=== PATIENT | female | born 1945 | race Two or more races ===

== ENCOUNTER 2018-10-02 18:39 | Emergency (ER) | payer MEDICARE, BC ==
[~2018-10-02] VITALS: Ht 162.6 cm; Wt 74.8 kg
[2018-10-02] MEDS ORDERED: NKM (18:52)
[2018-10-02 18:58] VITALS: BP 121/67
--- NOTE | 2018-10-02 18:59 | NUR ---
ED Nurse Note: Pt came in from home due to L palm laceration, pt injured her hand while cutting food in her kitchen. Wound about 2cm in length, staight edged. No active bleeding at this time. Swelling noted. Pain 8/10 josé miguel. AOx4, VSS josé miguel. Will cont to monitor.
[2018-10-02] MEDS ORDERED: Lidocaine 1% MPF 10mg/ml 5ml INJ ONE (19:00)
[2018-10-02] MEDS ORDERED: Neosporin Oint Ud Pkt TOPIC ONE (19:00)
[2018-10-02] MEDS ORDERED: Tetanus/Diptheria/Pertussis IM ONE (19:00)
--- NOTE | 2018-10-02 19:45 | NUR ---
ED Nurse Note: wound cleaned by sleep tech. notified SRIKANTH.
[2018-10-02] MEDS ORDERED: IBUPROFEN600 MG ORAL (20:44)
[2018-10-02] MEDS ORDERED: CEPHALEXIN500 MG ORAL (20:55)
[2018-10-02 21:00] VITALS: BP 120/75
--- NOTE | 2018-10-02 21:00 | NUR ---
ED Nurse Note: PT cleared to be d/c per ER provider, pt discharge and aftercare instruction provided w/ prescription, pt education done via discussion and handout, pt advised to follow up with pcp or return to ed if changes in condition, vss, ambulatory w/ steady gait, left w/ all belongings. pt accompanied by , wound care done.
--- NOTE | 2018-10-02 21:54 | Emergency Room Report ---
History of Present Illness General Chief Complaint: Laceration Source: Patient (ERNA FARRELL) Present Illness HPI Patient is a 72-year-old female vrpha-ilex-[id number] presenting for left hand laceration. She states that she was cooking when her knife slipped and struck her left hand. She noticed immediate pain and bleeding. This occurred approximately 1 hour prior to arrival. Pain is a 9 out of 10 dull ache and does not radiate. Worse with movement and touch. She does admit to some numbness around the area. She denies any other injury or symptoms Last tetanus shot is unknown (ERNA FARRELL) Allergies: Coded Allergies: No Known Allergies (Unverified , 10/02/18) Patient History Past Medical History: see triage record Pertinent Family History: none Last Menstrual Period: menopause Now: No Reviewed Nursing Documentation: PMH: Agreed; PSxH: Agreed (ERNA FARRELL) Nursing Documentation-PMH Past Medical History: No Stated History (ERNA FARRELL) Review of Systems All Other Systems: negative except mentioned in HPI (ERNA FARRELL) Physical Exam Vital Signs Date Time Temp Pulse Resp B/P (MAP) Pulse Ox O2 Delivery O2 Flow Rate FiO2 10/02/18 18:49 98.1 83 16 111/61 (78) 97 10/02/18 18:58 Room Air Sp02 EP Interpretation: reviewed, normal General Appearance: no apparent distress, alert, GCS 15, non-toxic Head: normocephalic, atraumatic Musculoskeletal: decreased range of motion - thumb flexion and opposition, swelling - Left thenar prominence Neurologic: alert, oriented x3, responsive, sensory deficit - L medial aspect of thumb Psychiatric: judgement/insight normal, memory normal, mood/affect normal, no suicidal/homicidal ideation (ERNA FARRELL) Procedures Laceration/Wound Repair Laceration/Wound Repair : Consent: Verbal Wound Location: upper extremity Wound's Depth, Shape: into muscle, linear Wound Length (cm): 2 Wound Explored: clean Irrigated w/ Saline (ccs): 100 Betadine Prep?: Yes Anesthesia: 1% Lidocaine Volume Anesthetic (ccs): 3 Wound Debrided: minimal Wound Repaired With: sutures Suture Size/Type: 5:0, proline Number of Sutures: 3 Layer Closure?: No Sterile Dressing Applied?: Yes Splint Applied?: No Sling Applied?: No Patient Tolerated: Well Complications: None (ERNA FARRELL) Medical Decision Making [place] Attestation Dr. Fox is my supervising physician. Patient management was discussed with my supervising physician (ERNA FARRELL) Medicare Attestation The history of Susan Carvalho has been reviewed and management options for her have been examined and discussed by Daniel Fox. I have personally examined and interviewed the patient. (Daniel Fox MD) Diagnostic Impression: Primary Impression: Laceration of left hand Qualified Codes: S61.412A - Laceration without foreign body of left hand, initial encounter ER Course Patient is a 72-year-old female [id number] presenting for left hand laceration Ddx considered include but not limited to laceration, fracture, tendon/ligament injury, avulsion, nerve damage PE: vitals stable. NAD Left hand: There is a 2 cm linear laceration over the left thenar prominence. There is notable edema to the area. Sensation is decreased to the medial aspect of the thumb. Two-point discrimination is limited as well. Active range of motion appears to be intact although difficult to assess with the extent of the swelling. Dr. José Miguel Christina was contacted from the emergency department. Case discussed and images were provided. He asked for the patient to follow-up in outpatient setting. He would like the patient placed on Keflex and wound closed with sutures. The wound was irrigated with normal saline and cleaned with betadine. A 27g needle was used to administer 3mL of lidocaine w.o epi for local anasthesia. 3 sutures were placed with 5-0 Nylon. The wound was well approximated and the patient tolerated the procedure well. The wound was then cleaned and bacitracin was applied. Tetanus shot given Patient discharged home with prescription for Keflex and Motrin. She is told to keep the wound clean and dry as discussed. Dr. José Miguel Christina's formation provided. Patient is told to schedule appointment as discussed. Suture care instructions given. ER precautions provided (ERNA FARRELL) Last Vital Signs Date Time Temp Pulse Resp B/P (MAP) Pulse Ox O2 Delivery O2 Flow Rate FiO2 10/02/18 21:00 97.2 80 16 120/75 99 Room Air Status: improved (ERNA FARRELL P.A.) Disposition: HOME, SELF-CARE Condition: Improved Scripts Cephalexin* (KEFLEX*) 500 Mg Capsule 500 MG ORAL EVERY 12 HOURS, #14 CAP 0 Refills Prov: ERNA FARRELL P.A. 10/02/18 Ibuprofen* (MOTRIN*) 600 Mg Tablet 600 MG ORAL Q8H PRN for For Pain, #30 TAB 0 Refills Prov: ERNA FARRELL P.A. 10/02/18 Referrals: José Miguel Christina MD Patient Instructions: Laceration Care, Adult Additional Instructions: I discussed my findings with the patient. All questions and concerns have been answered. Treatment and medication compliance have been addressed. I advised the patient that they need to follow up with hand surgeon as soon as possible. Information given. Return to ER if pain remains or worsens, you notice discharge from the wound, the wound continues to bleed, the suture/s fall out, you notice a fever or chills, or for any reason. Patient is advised to keep the wound clean and apply an antibacterial ointment. Patient verbalized understanding of discharge instructions. ERNA FARRELL Oct 02, 2018 21:54 Daniel Fox MD Oct 03, 2018 12:58
--- NOTE | 2018-10-02 22:02 | Emergency Room Report ---
Physical Exam Vital Signs Date Time Temp Pulse Resp B/P (MAP) Pulse Ox O2 Delivery O2 Flow Rate FiO2 10/02/18 18:49 98.1 83 16 111/61 (78) 97 10/02/18 18:58 Room Air Medical Decision Making Diagnostic Impression: Primary Impression: Laceration of left hand Qualified Codes: S61.412A - Laceration without foreign body of left hand, initial encounter ER Course Briefly, this is a 72-year-old pibyi-lttp-[id number] female who presents for evaluation of laceration to the left thenar eminence. Patient has a clean wound with swelling over the thenar eminence, some limitation on thumb flexion secondary to pain. She had decreased two-point discrimination over the radial aspect of the thumb. No tenderness over the flexor tendon sheath. Patient had the wound cleaned extensively and was closed in the emergency department. Discussed with orthopedic surgery, Dr. José Miguel Christina, will follow up with the patient is in outpatient in clinic. Patient was discharged on Keflex. Given strict return precautions. She verbalized understanding and agreement with this treatment plan. Please note that this report is being documented using [employer] technology. This can lead to erroneous entry secondary to incorrect interpretation by the dictating instrument. Last Vital Signs Date Time Temp Pulse Resp B/P (MAP) Pulse Ox O2 Delivery O2 Flow Rate FiO2 10/02/18 21:00 97.2 80 16 120/75 99 Room Air Disposition: HOME, SELF-CARE Condition: Improved Scripts Cephalexin* (KEFLEX*) 500 Mg Capsule 500 MG ORAL EVERY 12 HOURS, #14 CAP 0 Refills Prov: TERZIAN,ERNA P.A. 10/02/18 Ibuprofen* (MOTRIN*) 600 Mg Tablet 600 MG ORAL Q8H PRN for For Pain, #30 TAB 0 Refills Prov: TERZIAN,ERNA P.A. 10/02/18 Referrals: José Miguel Christina MD Patient Instructions: Laceration Care, Adult Additional Instructions: I discussed my findings with the patient. All questions and concerns have been answered. Treatment and medication compliance have been addressed. I advised the patient that they need to follow up with hand surgeon as soon as possible. Information given. Return to ER if pain remains or worsens, you notice discharge from the wound, the wound continues to bleed, the suture/s fall out, you notice a fever or chills, or for any reason. Patient is advised to keep the wound clean and apply an antibacterial ointment. Patient verbalized understanding of discharge instructions. Daniel Fox MD Oct 02, 2018 22:02
== END 2018-10-02 21:00 | disposition home or self-care (01) ==
LOC: EMR 19:22
DX: S61.412A Laceration without foreign body of left hand, initial encounter (principal); Z23 Encounter for immunization; W26.0XXA Contact with knife, initial encounter; Y93.9 Activity, unspecified; Y92.9 Unspecified place or not applicable
CPT/HCPCS: 90471; 90715; 99283